=== PATIENT | female | born 1995 | race Caucasian/White ===

== ENCOUNTER 2019-12-28 01:52 | Emergency (ER) | payer MEDICAID, OTHER ==
[~2019-12-28] VITALS: Ht 162.6 cm; Wt 92.0 kg
[~2019-12-28 01:52] MED LIST: IBUP-1223 PO; OXYC-302 PO; PREN1TAB28 PO; SENN-92 PO
[2019-12-28 01:58] VITALS: BP 115/55
--- NOTE | 2019-12-28 01:58 | NUR ---
24Y F BIB EMS FROM [facility] PT FOUND UNCONSCIOUS IN OWN VOMIT. PT ARRIVES HYSTERICAL BEGGING TO CALL GRANDPARENTS AND GIRLFRIEND. PT CRYING AND REMOVING MONITORING.
--- NOTE | 2019-12-28 02:10 | NUR ---
GIRLFRIEND NOW AT BEDSIDE
--- NOTE | 2019-12-28 04:08 | NUR ---
ERP AT BEDSIDE TO DISCUSS POC WITH GIRLFRIEND
--- NOTE | 2019-12-28 04:08 | NUR ---
PT NOW SLEEPING, GIRLFRIEND WANTS TO TAKE HER HOME AND CARE FOR HER THERE. ERP TO BE UPDATED.
--- NOTE | 2019-12-28 05:08 | NUR ---
PT AND GIRLFRIEND SLEEPING IN ROOM AT THIS TIME. PT REFUSING MONITORING
--- NOTE | 2019-12-28 06:21 | NUR ---
PT STILL SLEEPING RESP EVEN AND UNLABORED.
== END 2019-12-28 07:13 | disposition home or self-care (01) ==
LOC: ED 06:50
DX: F10.120 Alcohol abuse with intoxication, uncomplicated (principal); Y90.0 Blood alcohol level of less than 20 mg/100 ml
CPT/HCPCS: 99283